=== PATIENT | male | born 1970 | race Caucasian/White ===

== ENCOUNTER → 2022-02-23 11:52 | Outpatient (BNVA) | payer OTHER, SELFPAY | PROVIDERS: Visit Provider Physician Assistant Medical | DX: S01.01XA Laceration without foreign body of scalp, initial encounter (principal); W20.8XXA Other cause of strike by thrown, projected or falling object, initial encounter | CPT/HCPCS: 99202 ==

== ENCOUNTER → 2022-03-02 09:45 | Outpatient (BNVA) | payer OTHER, SELFPAY | PROVIDERS: Visit Provider Physician Assistant Medical | DX: Z48.02 Encounter for removal of sutures (principal); S01.01XA Laceration without foreign body of scalp, initial encounter; W20.8XXA Other cause of strike by thrown, projected or falling object, initial encounter | CPT/HCPCS: 99213 ==

== ENCOUNTER → 2023-03-21 10:27 | Outpatient (BNVA) | payer OTHER, SELFPAY | PROVIDERS: Visit Provider Physician Assistant Medical | DX: S86.211A Strain of muscle(s) and tendon(s) of anterior muscle group at lower leg level, right leg, initial encounter (principal); Y93.01 Activity, walking, marching and hiking | CPT/HCPCS: 99202 ==

== ENCOUNTER → 2023-03-28 13:29 | Outpatient (BNVA) | payer OTHER, SELFPAY | PROVIDERS: Visit Provider Physician Assistant Medical | DX: S86.111A Strain of other muscle(s) and tendon(s) of posterior muscle group at lower leg level, right leg, initial encounter (principal); Y93.01 Activity, walking, marching and hiking | CPT/HCPCS: 99213 ==

== ENCOUNTER → 2023-04-10 09:45 | Outpatient (BNVA) | payer OTHER, SELFPAY | PROVIDERS: Visit Provider Physician Assistant Medical | DX: S86.311D Strain of muscle(s) and tendon(s) of peroneal muscle group at lower leg level, right leg, subsequent encounter (principal); Y93.01 Activity, walking, marching and hiking | CPT/HCPCS: 99213 ==

== ENCOUNTER → 2023-05-01 09:23 | Outpatient (BNVA) | payer OTHER, SELFPAY | PROVIDERS: Visit Provider Physician Assistant Medical | DX: M79.661 Pain in right lower leg (principal) | CPT/HCPCS: 99213 ==

== ENCOUNTER 2023-05-13 10:31 | Outpatient (REF) | payer OTHER, SELFPAY ==
--- NOTE | ~2023-05-13 | MR_ITS ---
EXAMINATION: MR LOWER LEG WITHOUT CONTRAST, RIGHT CLINICAL INFORMATION: Right calf pain. Popping sensation. Numbness. COMPARISON: None. TECHNIQUE: Multisequence MR imaging of the right lower leg was obtained without contrast on a high-field strength scanner. FINDINGS: BONE: No marrow edema. No evidence of acute osseous injury. No stress reaction or fracture. No concerning lytic or blastic osseous lesion. MUSCLES/TENDONS: Edema with somewhat linear orientation along the anteromedial aspect of the medial gastrocnemius muscle (axial image 24/59) with adjacent edema along the myotendinous junction as well as along the periphery of the muscle. Findings are consistent with an acute strain/partial tear. No significant tendon gap or tendon retraction. The remaining visualized muscles and tendons are intact. LIGAMENTS: Grossly intact right intra-articular knee ligaments, however, evaluation limited on large [id number] imaging. SOFT TISSUES: No soft tissue mass or organized fluid collection. MR/MR lower leg RT wo con IMPRESSION: 1. Acute strain/partial tear along the anteromedial aspect of the medial gastrocnemius muscle with adjacent soft tissue edema. No significant tendon gap or tendon retraction. 2. No acute osseous injury.
== END 2023-05-13 10:32 | disposition home or self-care (01) ==
LOC: HO.MRI 10:31
PROVIDERS: PCP Internal Medicine; Visit Provider Internal Medicine
DX: R60.0 Localized edema (principal); M79.661 Pain in right lower leg
CPT/HCPCS: 73718

== ENCOUNTER → 2023-05-18 11:52 | Outpatient (BNVA) | payer OTHER, SELFPAY | PROVIDERS: PCP Internal Medicine; Visit Provider Physician Assistant Medical | DX: S76.311D Strain of muscle, fascia and tendon of the posterior muscle group at thigh level, right thigh, subsequent encounter (principal); X50.1XXD Overexertion from prolonged static or awkward postures, subsequent encounter | CPT/HCPCS: 99213 ==